=== PATIENT | male | born 1990 | race American Indian/Alaskan Native ===

== ENCOUNTER 2018-10-20 10:26 | Emergency (ER) | payer SELFPAY ==
[2018-10-20 10:31] VITALS: BP 125/71
--- NOTE | 2018-10-20 11:12 | Emergency Department Report ---
ED Back Pain/Injury HPI - General Chief Complaint: Back Pain/Injury Stated Complaint: BACK PAIN Time Seen by Provider: 10/20/18 11:07 Source: patient Limitations: No Limitations - History of Present Illness Initial Comments: has had intermittent back issues heavy lifting at work and now worse worse with movement, diffusely across mid/low back wants to go to PT NO numbness/weakness/bowel/bladder dysfunction -: Gradual, week(s) (2) Similar Symptoms Previously: Yes Place: work Radiation: none Severity: moderate Severity scale (0 -10): 6 Quality: aching Consistency: constant Improves With: immobilization Worsens With: movement Context: while lifting Associated Symptoms: denies other symptoms - Related Data Previous Rx's Medication Instructions Recorded Last Taken Type Cyclobenzaprine [Flexeril] 10 mg PO TID PRN #15 tablet 10/20/18 Unknown Rx Naproxen [Naprosyn] 500 mg PO BID #20 tablet 10/20/18 Unknown Rx Allergies Allergy/AdvReac Type Severity Reaction Status Date / Time No Known Allergies Allergy Unverified 10/20/18 10:27 ED Review of Systems ROS: Stated complaint: BACK PAIN Other details as noted in HPI Comment: All other systems reviewed and negative Musculoskeletal: as per HPI ED Back Pain Physical Exam - Exam General: Vital signs noted. No distress. Alert and acting appropriately. Back/Abdomen: Yes Perithoracic Tenderness, Yes Perilumbar Tenderness, No Abdominal Tenderness, No Sacroiliac Tenderness, No Flank Tenderness, No Straight Leg Raise Pain Neuro: Yes Normal Sensation, Yes Normal DTR's, Yes Normal Gait, No Motor Weakness ED Course Vital Signs 10/20/18 10:30 Temperature 98.1 F Pulse Rate 85 Respiratory 16 Rate Blood Pressure 125/71 O2 Sat by Pulse 99 Oximetry ED Medical Decision Making - Medical Decision Making exam c/w muscular pain no signs cord compression recommend NSAID, muscle relaxers, ortho fu - Differential Diagnosis strain, spasms Critical care attestation.: If time is entered above; I have spent that time in minutes in the direct care of this critically ill patient, excluding procedure time. ED Disposition Clinical Impression: Low back strain Qualifiers: Encounter type: initial encounter Qualified Code(s): S39.012A - Strain of muscle, fascia and tendon of lower back, initial encounter Disposition: TO HOME OR SELFCARE Is pt being admited?: No Condition: Good Instructions: Muscle Strain (ED) Prescriptions: Cyclobenzaprine [Flexeril] 10 mg PO TID PRN #15 tablet PRN Reason: Muscle Spasm Naproxen [Naprosyn] 500 mg PO BID #20 tablet Referrals: CORY REYES MD [Staff Physician] - 3-5 Days Time of Disposition: 11:12
== END 2018-10-20 11:35 | disposition home or self-care (01) ==
LOC: ED 10:26
DX: S39.012A Strain of muscle, fascia and tendon of lower back, initial encounter (principal); X50.0XXA Overexertion from strenuous movement or load, initial encounter; Y93.89 Activity, other specified; Y92.69 Other specified industrial and construction area as the place of occurrence of the external cause; Y99.8 Other external cause status
CPT/HCPCS: 99282